=== PATIENT | male | born 1965 | race Caucasian/White ===

== ENCOUNTER 2019-05-09 23:28 | Emergency (ER) | payer MEDICAID ==
[~2019-05-09] VITALS: Ht 180.3 cm; Wt 98.1 kg
--- NOTE | 2019-05-09 23:34 | NUR ---
PT TO [facility], WAIT TIME EXPLAINED.
[2019-05-10] MEDS ORDERED: THIAMINE 100 MG/ML, 2ML IM ONE (00:30)
[2019-05-10 00:50] LABS: MEAN CORPUSCULAR HEMOGLOBIN 33.6 pg (27.5-34.5); MEAN CORPUSCULAR VOLUME 101.6 fL (81-97); MEAN PLATELET VOLUME 8.1 fL (7.4-10.4); PLATELET COUNT 159 x10^3/uL (130-400); RED BLOOD COUNT 3.87 x10^6/uL (4.38-5.82); RED CELL DISTRIBUTION WIDTH 13.8 % (9.4-14.8)
[2019-05-10 01:01] LABS: ALANINE AMINOTRANSFERASE 80 U/L (12-78); ALBUMIN 3.3 g/dL (3.4-5.0); ANION GAP 10 mmol/L (5-15); CHLORIDE 104 mmol/L (98-107)
[2019-05-10 01:12] LABS: ALKALINE PHOSPHATASE 124 U/L (45-117); BILIRUBIN,TOTAL 0.5 mg/dL (0.2-1.0); CREATININE 0.69 mg/dL (0.7-1.3); TOTAL PROTEIN 8.9 g/dL (6.4-8.2)
[2019-05-10 01:41] VITALS: BP 98/62
--- NOTE | 2019-05-10 01:42 | NUR ---
Patient states he wants to get help to quit drinking alcohol. Spoke with [facility] who stated they would accept this patient.
[2019-05-10 01:49] LABS: BASOPHILS # (AUTO) 0.06 x10^3/uL (0-0.1); BASOPHILS % (AUTO) 1 % (0-1); EOSINOPHILS # (AUTO) 0.11 x10^3/uL (0-0.4); EOSINOPHILS % (AUTO) 2 % (1-7); LYMPHOCYTES # (AUTO) 3.23 x10^3/uL (1-3.4); LYMPHOCYTES % (AUTO) 58 % (22-44); MD SCAN; MONOCYTES # (AUTO) 0.58 x10^3/uL (0.2-0.8); MONOCYTES % (AUTO) 11 % (2-9); NEUTROPHILS # (AUTO) 1.61 x10^3/uL (1.8-6.8); NEUTROPHILS % (AUTO) 29 % (42-75)
== END 2019-05-10 01:56 | disposition home or self-care (01) ==
LOC: ED 05-10 01:50
DX: F10.220 Alcohol dependence with intoxication, uncomplicated (principal); R25.1 Tremor, unspecified; R11.0 Nausea
CPT/HCPCS: 36415; 80053; 80307; 83690; 85025; 99283